=== PATIENT | male | born 1940 | race Caucasian/White ===

== ENCOUNTER → 2017-06-26 | Outpatient (CLI) | payer BC ==
--- NOTE | ~2017-06-26 | CT4 ---
[facility]. [facility] A Service of [facility] RADIOLOGY TEXT RESULTS PATIENT: JORDYN BAPTISTE LOCATION: [facility] : 42 UNIT #: [id number] AGE: [address]: Juanito Funez MD SEX: M ORDER DR: [id number] [place] [id number] O MR#: [id number] Acc #: [id number] NAME: JORDYN BAPTISTE : 1940 SEX: M STUDY DATE/TIME: 06/26/2017 8:52 UNIT: [facility] ROOM: STUDY DESCRIPTION: CT Abd and Pelv Wo Cont Attending Physician: Juanito Funez M.D. Referring Physician: Juanito Funez M.D. Ordering Physician: Juanito Funez M.D. Primary Care Physician: Salomon Tyson M.D. MEDICAL IMAGING REPORT This report is preliminary unless electronic signature is present. EXAM CT abdomen and pelvis without contrast INDICATION Fullness/palpable mass in the left upper quadrant of the abdomen for the past [address] of the abdomen and pelvis. This CT exam was performed with one or more of the following radiation dose reduction techniques: Automatic exposure control, adjustment of mA and/or kV according to patient size, and iterative reconstruction. COMPARISON 09/13/2015 FINDINGS ABDOMEN WITHOUT CONTRAST: Included lung bases are clear. The liver, spleen, pancreas, gallbladder have an unremarkable, unenhanced appearance. A 5.9 cm right renal cyst. A 1.9 cm benign right adrenal adenoma. The bowel loops are nondilated. No mass is seen in the left upper quadrant of the abdomen. PELVIS WITHOUT CONTRAST: Mild bladder wall thickening. Prostate measures 5.2 cm. No pelvic mass or fluid. No aggressive appearing bone lesion. IMPRESSION 1. No acute findings in the abdomen or pelvis or specific finding to explain the patient's sensation of a mass in the left upper quadrant of the abdomen. [facility] A Service [facility] RADIOLOGY TEXT RESULTS PATIENT: JORDYN BAPTISTE LOCATION: [facility] : 42 UNIT #: [id number] AGE: [address]: Juanito Funez MD SEX: M ORDER DR: 2. Benign right renal cyst and a benign right adrenal adenoma. 3. Prostatomegaly. Mild circumferential bladder wall thickening may reflect changes of chronic outlet obstruction. Dictated by... Donnie Alarcon M.D. THIS IS AN ELECTRONICALLY VERIFIED REPORT Donnie Alarcon M.D. at 06/27/2017 12:10 PM HARI/hima TD: 06/26/2017 15:15 JOB #: [id number] MEDICAL IMAGING REPORT Page 1 of 1
== END | disposition home or self-care (01) ==
LOC: SCT 08:29
DX: K43.9 Ventral hernia without obstruction or gangrene (principal); N28.1 Cyst of kidney, acquired; D35.01 Benign neoplasm of right adrenal gland; N40.0 Benign prostatic hyperplasia without lower urinary tract symptoms; N32.89 Other specified disorders of bladder
CPT/HCPCS: 74176